=== PATIENT | female | born 1950 | race Caucasian/White ===

== ENCOUNTER 2023-06-11 08:18 | Emergency (ER) | payer OTHER ==
[2023-06-11] VITALS (8 sets, daily range): BP systolic 110; BP diastolic 80–87; PULSE 60–97; RESP 14–24; TEMP 97.1–98.1; O2SAT 94–98
[~2023-06-11] VITALS: Ht 152.4 cm; Wt 62.1 kg
[2023-06-11] MEDS ORDERED: ALBUTEROL 0.083% 2.5 MG/3 ML NEBU INH ONE ×2 (08:45→09:55)
[2023-06-11] MEDS ORDERED: IPRATROPIUM 0.02% 0.5 MG/2.5 ML NEBU INH ONE ×2 (08:45→09:55)
[2023-06-11 09:14] LABS: ANION GAP 11.6 (8-16); CARBON DIOXIDE 27.5 mmol/L (21-32); CHLORIDE 104 mmol/L (98-107); CREATININE 0.6 mg/dL (0.6-1.3); GLUCOSE 106 mg/dL (74-106); POTASSIUM 4.1 mmol/L (3.5-5.1); SODIUM SERUM 139 mmol/L (136-145); UREA NITROGEN, BLOOD 19 mg/dL (7-18)
[2023-06-11 09:33] LABS: BASOPHILS # (AUTO) 0.1 K/uL (0.00-0.22); BASOPHILS % (AUTO) 1.9 % (0.0-2.0); EOSINOPHILS # (AUTO) 0.1 K/uL (0-0.4); EOSINOPHILS % (AUTO) 1.5 % (0.0-4.0); HEMATOCRIT 35.9 % (36-48); HEMOGLOBIN 12.3 g/dL (12.0-16.0); LYMPHOCYTES # (AUTO) 1.6 K/uL (2.5-16.5); LYMPHOCYTES % (AUTO) 38.9 % (20.5-51.1); MEAN CORPUSCULAR HEMOGLOBIN 33 pg (27-31); MEAN CORPUSCULAR HGB CONC 34 g/dL (33-37); MEAN CORPUSCULAR VOLUME 96.5 fL (80-94); MONOCYTES # (AUTO) 0.6 K/uL (0.8-1.0); MONOCYTES % (AUTO) 13.7 % (1.7-9.3); NEUTROPHILS # (AUTO) 1.8 K/uL (1.8-7.7); PLATELET COUNT (AUTO) 235 K/uL (140-450); RED BLOOD CELL COUNT(AUTO) 3.72 MIL/uL (4.20-5.40); RED CELL DISTRIBUTION WIDTH 12.9 % (11.6-13.7)
[2023-06-11 09:44] LABS: INR 0.94 (0.8-1.2); PARTIAL THROMBOPLASTIN TIME 24.1 secs (22-35.6); PROTHROMBIN TIME 9.9 secs (10.8-13.4)
[2023-06-11 09:49] LABS: FLU A ANTIGEN negative (NEGATIVE); FLU B ANTIGEN negative (NEGATIVE)
[2023-06-11] MEDS ORDERED: predniSONE 20 MG TAB PO ONE (11:55)
[2023-06-11] MEDS ORDERED: PRED20TA5 PO (12:24)
[2023-06-11] MEDS ORDERED: AMOX1TAB8 PO (12:25)
[2023-06-11] MEDS ORDERED: AZIT250T3 PO (12:26)
[2023-06-11] MEDS ORDERED: ALBU0.0912 INH (12:27)
== END 2023-06-11 12:42 | disposition home or self-care (01) ==
LOC: MED 08:18
DX: J44.1 Chronic obstructive pulmonary disease with (acute) exacerbation (principal); Z20.822 Contact with and (suspected) exposure to COVID-19; Z79.899 Other long term (current) drug therapy; Z79.2 Long term (current) use of antibiotics
CPT/HCPCS: 36415; 71045; 80048; 83880; 84484; 85025; 85610; 85730; 87426; 87804; 93005; 99285; J7512; J7613; J7644; Q0092; 94640